=== PATIENT | male | born 1990 | race Caucasian/White ===

== ENCOUNTER 2017-11-30 22:22 | Observation (INO) | payer SELFPAY ==
[2017-11-30] MEDS ORDERED: Zofran 4 MG/2 ML VIAL IV ONE (22:29)
[2017-11-30] MEDS ORDERED: BABY ASPIRIN 81 MG CHEW PO ONE (22:29)
--- NOTE | 2017-11-30 22:29 | ERPHSYRPT ---
- History of Present Illness Time Seen by Provider: 11/30/17 22:25 Historian: patient, family Exam Limitations: no limitations Physician History: The patient is a 27-year-old male with his mother complaining of intermittent central chest pain for 2 weeks. He will have chest pain lasting anywhere from 5 seconds to 30 minutes when the chest pain occurs. It will happen several times a day. He states it feels like a pain followed by a tightness. He currently has no chest pain. He's been nauseated from time to time. He's been short of breath from time to time. He has an appointment tomorrow to be seen by a nurse practitioner. The chest pain is happen several times today. His girlfriend is and now he is worried about his chest pain. His mother tells me that as a child, he had hypertrophic cardiomyopathy. He has not seen a infrastructure developer in several years. He has not seen any doctor in several years. He takes no medicines. His past surgical history is significant for tonsillectomy. Timing/Duration: week(s) (2), intermittent, resolved prior to arrival, sudden, improved Activities at Onset: none Quality: aching, tightness Location: central Chest Pain Radiation: no radiation Severity of Pain-Max: moderate Severity of Pain-Current: none Modifying Factors: Improves With: nothing Associated Symptoms: nausea, shortness of breath, No vomiting, No palpitations, No abdominal pain, No cough, No diaphoresis Prior Chest Pain/Cardiac Workup: no prior chest pain Nitro Today/Relief: no nitro taken today Aspirin Treatment Today: no aspirin today Allergies/Adverse Reactions: No Known Drug Allergies Allergy (Unverified 11/30/17 22:32) - Review of Systems Constitutional: No Fever, No Chills Eyes: No Symptoms Ears, Nose, & Throat: No Symptoms Respiratory: No Cough, No Dyspnea Cardiac: Chest Pain Abdominal/Gastrointestinal: Nausea, No Abdominal Pain, No Vomiting, No Diarrhea Genitourinary Symptoms: No Dysuria Musculoskeletal: No Back Pain, No Neck Pain Skin: No Rash Neurological: No Dizziness, No Focal Weakness, No Sensory Changes Psychological: No Symptoms Endocrine: No Symptoms Hematologic/Lymphatic: No Symptoms Immunological/Allergic: No Symptoms All Other Systems: Reviewed and Negative - Nursing Vital Signs Nursing Vital Signs: Initial Vital Signs Pulse Rate 97 H 11/30/17 22:22 Respiratory Rate 18 11/30/17 22:22 Blood Pressure 133/96 11/30/17 22:22 O2 Sat by Pulse Oximetry 98 11/30/17 22:22 Pain Scale Pain Intensity 2 - Physical Exam General Appearance: no apparent distress, alert, obese Eye Exam: PERRL/EOMI, eyes nml inspection Ears, Nose, Throat Exam: normal ENT inspection, moist mucous membranes Neck Exam: normal inspection, non-tender, supple, full range of motion Respiratory Exam: normal breath sounds, lungs clear, No respiratory distress Cardiovascular Exam: regular rate/rhythm, normal heart sounds Gastrointestinal/Abdomen Exam: soft, No tenderness, No mass Rectal Exam: not done Back Exam: normal inspection, No CVA tenderness, No vertebral tenderness Extremity Exam: normal inspection, normal range of motion Neurologic Exam: alert, oriented x 3, cooperative, normal mood/affect, sensation nml, No motor deficits Skin Exam: normal color, warm, dry SpO2 Interpretation: normal Oxygen Delivery: Room Air - Course EKG Interpreted by Me: RATE, Sinus Rhythm, NORMAL QRS, Other (inverted T waves in V3, V4, V5.) - Radiology Exams Chest X-ray Interpretation: Interpreted by me, Negative, Other (neg 2V chest, elevated left hemidiaphragm with large gastric air bubble. Comp 2V chest .) Ordered Tests: Active Orders 24 hr Category Date Time Status Sign Builder Supervisor STAT Care 11/30/17 22:30 Active Clean Catch Urine Specimen STAT Care 11/30/17 22:29 Active EKG-ER Only STAT Care 11/30/17 22:29 Active IV Insertion STAT Care 11/30/17 22:29 Active Pulse Oximetry (ED) STAT Care 11/30/17 22:29 Active CHEST 2 VIEWS (PA AND LAT) Stat Exams 11/30/17 22:30 Taken CBC W DIFF Stat Lab 11/30/17 22:45 Completed CMP Stat Lab 11/30/17 22:45 Completed NT PRO BNP Stat Lab 11/30/17 22:45 Completed TROPONIN Q3H Lab 11/30/17 22:45 Completed TROPONIN Q3H Lab 12/01/17 01:30 Ordered TROPONIN Q3H Lab 12/01/17 04:30 Ordered TROPONIN Q3H Lab 12/01/17 07:30 Ordered TROPONIN Q3H Lab 12/01/17 10:30 Ordered Urine Triage Profile Stat Lab 11/30/17 22:30 Uncollected Medication Summary Discontinued Medications Generic Name Dose Route Start Last Admin Trade Name Lang PRN Reason Stop Dose Admin Aspirin 324 mg 11/30/17 22:29 11/30/17 22:41 Baby Aspirin 81 Mg Chew PO 11/30/17 22:30 324 mg STAT ONE Administration Aspirin Confirm 11/30/17 22:35 Baby Aspirin 81 Mg Chew Administered 11/30/17 22:36 Dose 324 mg .ROUTE .STK-MED ONE Ondansetron HCl 4 mg 11/30/17 22:29 11/30/17 22:40 Zofran 4 Mg/2 Ml Vial IV 11/30/17 22:30 4 mg STAT ONE Administration Ondansetron HCl Confirm 11/30/17 22:35 Zofran 4 Mg/2 Ml Vial Administered 11/30/17 22:36 Dose 4 mg .ROUTE .STK-MED ONE Lab/Rad Data: Laboratory Result Diagrams 11/30/17 22:45 11/30/17 22:45 Laboratory Results 11/30/17 11/30/17 11/30/17 Range/Units 22:45 22:45 22:45 WBC 10.7 H (4.0-10.5) K/mm3 RBC 5.21 (4.1-5.6) M/mm3 Hgb 16.5 (12.5-18.0) gm/dl Hct 46.1 (42-50) % MCV 88.5 (78-100) fl MCH 31.7 (26-32) pg MCHC 35.8 (32-36) g/dl RDW 13.2 (11.5-14.0) % Plt Count 269 (150-450) K/mm3 MPV 10.0 H (6-9.5) fl Gran % 61.8 (36.0-66.0) % Eos # (Auto) 0.16 (0-0.5) Absolute Lymphs (auto) 2.98 (1.0-4.6) Absolute Monos (auto) 0.90 (0.0-1.3) Lymphocytes % 27.9 (24.0-44.0) % Monocytes % 8.4 (0.0-12.0) % Eosinophils % 1.5 (0.00-5.0) % Basophils % 0.4 (0.0-0.4) % Absolute Granulocytes 6.62 (1.4-6.9) Basophils # 0.04 (0-0.4) Sodium 138 (137-145) mmol/L Potassium 4.0 (3.5-5.1) mmol/L Chloride 102 (98-107) mmol/L Carbon Dioxide 25 (22-30) mmol/L Anion Gap 15.9 H (5-15) MEQ/L BUN 14 (9-20) mg/dL Creatinine 0.85 (0.66-1.25) mg/dL Estimated GFR > 60.0 ML/MIN Glucose 293 H (74-106) mg/dL Calcium 9.1 (8.4-10.2) mg/dL Total Bilirubin 0.40 (0.2-1.3) mg/dL AST 42 (17-59) U/L ALT 69 H (0-50) U/L Alkaline Phosphatase 83 (38-126) U/L Troponin I < 0.012 (0.000-0.034) ng/mL NT-Pro-B Natriuret Pep 17.3 (0-450) pg/mL Serum Total Protein 7.4 (6.3-8.2) g/dL Albumin 4.5 (3.5-5.0) g/dL - Progress Progress: unchanged Air Movement: good Blood Culture(s) Obtained: No Antibiotics given: No Discussed with : Melani Will see patient in: hospital (observation) Counseled pt/family regarding: lab results, diagnosis, rad results - Departure Time of Disposition: 23:39 Departure Disposition: Observation (per Dr Nate Arnold) Clinical Impression: Chest pain Condition: Stable Critical Care Time: No Referrals: S[facility]EN,DR[facility] [Primary Care Provider] -
[2017-11-30] MEDS ORDERED: BABY ASPIRIN 81 MG CHEW ONE (22:35)
[2017-11-30] MEDS ORDERED: Zofran 4 MG/2 ML VIAL ONE (22:35)
[2017-11-30 22:56] LABS: BASOPHIL % 0.4 % (0.0-0.4); Basophil (Absolute #) 0.04 (0-0.4); Eosinophil % 1.5 % (0.00-5.0); Eosinophil (Absolute #) 0.16 (0-0.5); Granulocyte Absolute (ANC) 6.62 (1.4-6.9); Granulocytes % 61.8 % (36.0-66.0); Hematocrit 46.1 % (42-50); Hemoglobin 16.5 gm/dl (12.5-18.0); Lymphocyte (Absolute #) 2.98 (1.0-4.6); Lymphocytes % 27.9 % (24.0-44.0); Mean Cell Volume 88.5 fl (78-100); Mean Corpuscular Hemoglobin 31.7 pg (26-32); Mean Corpuscular Hgb Concent. 35.8 g/dl (32-36); Monocytes % 8.4 % (0.0-12.0); Platelet Count 269 K/mm3 (150-450); Red Blood Count 5.21 M/mm3 (4.1-5.6); Red Cell Distribution Width 13.2 % (11.5-14.0); White Blood Count 10.7 K/mm3 (4.0-10.5)
[2017-11-30 23:18] LABS: ALBUMIN 4.5 g/dL (3.5-5.0); ALKALINE PHOSPHATASE 83 U/L (38-126); ANION GAP 15.9 MEQ/L (5-15); BLOOD UREA NITROGEN 14 mg/dL (9-20); CHLORIDE 102 mmol/L (98-107); Calcium 9.1 mg/dL (8.4-10.2); Carbon Dioxide 25 mmol/L (22-30); Creatinine 1 0.85 mg/dL (0.66-1.25); Glucose 293 mg/dL (74-106); NT PRO BNP 17.3 pg/mL (0-450); SGOT/AST 42 U/L (17-59); SGPT/ALT 69 U/L (0-50); SODIUM 138 mmol/L (137-145); Total Protein 7.4 g/dL (6.3-8.2)
[2017-12-01] MEDS ORDERED: Senokot-S Tablet PO PRN (00:08)
[2017-12-01] MEDS ORDERED: MAALOX ES 30 ML UNIT DOSE PO PRN (00:08)
[2017-12-01] MEDS ORDERED: Zofran 4 MG/2 ML VIAL IV PRN (00:08)
[2017-12-01] MEDS ORDERED: MILK OF MAGNESIA 30 ML PO PRN (00:08)
[2017-12-01] MEDS ORDERED: TYLENOL 325 MG PO PRN (00:08)
[2017-12-01 05:55] LABS: Risk Ratio 3.8
--- NOTE | 2017-12-01 08:30 | PCM.HP ---
History of Present Illness - Chief Complaint Chief Complaint: chest pain Date: 12/01/17 History of Present Illness: is a 27 year old male. who reports a previous history of hypertrophic cardiomyopathy that he was following for yearly echos until he was 19 y/o. 2 weeks ago he began developing a squeezing chest pain in the left side of his chest that would cause him to be short of breath and then have a cramping feeling in the chest after this. He has no dypnea on exertion and no exacerbating or relieving factors. He works as a welder boilermaker and chews tobacco. He has strong family history of diabetes but has never previously known of any sugar problems himself. He has no syncope and no swelling. - Review of Systems Constitutional: No Fever, No Chills Eyes: No Symptoms Ears, Nose, & Throat: No Symptoms Respiratory: Short Of Breath, No Cough Cardiac: Chest Pain, No Edema, No Syncope Abdominal/Gastrointestinal: No Abdominal Pain, No Nausea, No Vomiting, No Diarrhea Genitourinary Symptoms: No Dysuria Musculoskeletal: No Back Pain, No Neck Pain Skin: No Rash Neurological: No Dizziness, No Focal Weakness, No Sensory Changes Psychological: No Symptoms Endocrine: No Symptoms Hematologic/Lymphatic: No Symptoms Immunological/Allergic: No Symptoms Medications & Allergies Home Medications: Home Medication List No Reportable Medications [No Reported Medications] 12/01/17 [History Confirmed 12/01/17] Allergies/Adverse Reactions: Allergies Allergy/AdvReac Type Severity Reaction Status Date / Time No Known Drug Allergies Allergy Unverified 11/30/17 22:32 - Past Medical History Past Medical History: Yes Neurological History: No Pertinent History ENT History: No Pertinent History Cardiac History: Other Respiratory History: No Pertinent History Endocrine Medical History: No Pertinent History Musculoskelatal History: No Pertinent History GI Medical History: No Pertinent History History: No Pertinent History Pyscho-Social History: No Pertinent History Male Reproductive Disorders: No Pertinent History Comment: HYPERTROPHIC CARDIOMYOPATHY. - Past Surgical History Past Surgical History: Yes Neuro Surgical History: No Pertinent History Cardiac History: No Pertinent History Respiratory Surgery: No Pertinent History GI Surgical History: No Pertinent History Genitourinary Surgical Hx: No Pertinent History Musculskeletal Surgical Hx: No Pertinent History Male Surgical History: No Pertinent History - Social History Smoking Status: Never smoker Exposure to second hand smoke: No Alcohol: None Drug Use: none - Physical Exam Vital Signs: Vital Signs - 24 hr Temp Pulse Pulse Resp BP Pulse Ox 12/01/17 07:47 94 L 12/01/17 07:18 97.7 F 57 L 20 131/60 94 L 12/01/17 04:00 98.2 F 65 18 128/60 97 12/01/17 00:22 97.8 F 69 24 155/75 97 11/30/17 23:12 95 H 18 129/93 98 11/30/17 22:29 98 11/30/17 22:22 91 H 97 H 18 133/96 98 General Appearance: no apparent distress, alert, obese Neurologic Exam: alert, oriented x 3, cooperative, normal mood/affect, nml cerebellar function, nml station & gait, sensation nml, No motor deficits Eye Exam: PERRL/EOMI, eyes nml inspection Ears, Nose, Throat Exam: normal ENT inspection, TMs normal, pharynx normal, moist mucous membranes Neck Exam: normal inspection, non-tender, supple, full range of motion Respiratory Exam: normal breath sounds, lungs clear, No respiratory distress Cardiovascular Exam: regular rate/rhythm, normal heart sounds, normal peripheral pulses Gastrointestinal/Abdomen Exam: soft, normal bowel sounds, No tenderness, No mass Back Exam: normal inspection, normal range of motion, No CVA tenderness, No vertebral tenderness Extremity Exam: normal inspection, normal range of motion, pelvis stable Skin Exam: normal color, warm, dry, No rash Lymphatic Exam: No adenopathy Results - Labs Lab/Micro Results: Accuchecks Date 12/01/17 Time 07:30 Accucheck Value: 130 Lab Results-Last 24 Hours 11/30/17 11/30/17 11/30/17 Range/Units 22:45 22:45 22:45 WBC 10.7 H (4.0-10.5) K/mm3 RBC 5.21 (4.1-5.6) M/mm3 Hgb 16.5 (12.5-18.0) gm/dl Hct 46.1 (42-50) % MCV 88.5 (78-100) fl MCH 31.7 (26-32) pg MCHC 35.8 (32-36) g/dl RDW 13.2 (11.5-14.0) % Plt Count 269 (150-450) K/mm3 MPV 10.0 H (6-9.5) fl Gran % 61.8 (36.0-66.0) % Eos # (Auto) 0.16 (0-0.5) Absolute Lymphs (auto) 2.98 (1.0-4.6) Absolute Monos (auto) 0.90 (0.0-1.3) Lymphocytes % 27.9 (24.0-44.0) % Monocytes % 8.4 (0.0-12.0) % Eosinophils % 1.5 (0.00-5.0) % Basophils % 0.4 (0.0-0.4) % Absolute Granulocytes 6.62 (1.4-6.9) Basophils # 0.04 (0-0.4) Sodium 138 (137-145) mmol/L Potassium 4.0 (3.5-5.1) mmol/L Chloride 102 (98-107) mmol/L Carbon Dioxide 25 (22-30) mmol/L Anion Gap 15.9 H (5-15) MEQ/L BUN 14 (9-20) mg/dL Creatinine 0.85 (0.66-1.25) mg/dL Estimated GFR > 60.0 ML/MIN Glucose 293 H (74-106) mg/dL Calcium 9.1 (8.4-10.2) mg/dL Total Bilirubin 0.40 (0.2-1.3) mg/dL AST 42 (17-59) U/L ALT 69 H (0-50) U/L Alkaline Phosphatase 83 (38-126) U/L Troponin I < 0.012 (0.000-0.034) ng/mL NT-Pro-B Natriuret Pep 17.3 (0-450) pg/mL Serum Total Protein 7.4 (6.3-8.2) g/dL Albumin 4.5 (3.5-5.0) g/dL Triglycerides (30-150) mg/dL Cholesterol (50-200) mg/dL LDL Cholesterol (30-100) mg/dL HDL Cholesterol (40-60) mg/dL Heart Disease Risk Ratio 12/01/17 12/01/17 12/01/17 Range/Units 01:40 05:02 05:02 WBC (4.0-10.5) K/mm3 RBC (4.1-5.6) M/mm3 Hgb (12.5-18.0) gm/dl Hct (42-50) % MCV (78-100) fl MCH (26-32) pg MCHC (32-36) g/dl RDW (11.5-14.0) % Plt Count (150-450) K/mm3 MPV (6-9.5) fl Gran % (36.0-66.0) % Eos # (Auto) (0-0.5) Absolute Lymphs (auto) (1.0-4.6) Absolute Monos (auto) (0.0-1.3) Lymphocytes % (24.0-44.0) % Monocytes % (0.0-12.0) % Eosinophils % (0.00-5.0) % Basophils % (0.0-0.4) % Absolute Granulocytes (1.4-6.9) Basophils # (0-0.4) Sodium (137-145) mmol/L Potassium (3.5-5.1) mmol/L Chloride (98-107) mmol/L Carbon Dioxide (22-30) mmol/L Anion Gap (5-15) MEQ/L BUN (9-20) mg/dL Creatinine (0.66-1.25) mg/dL Estimated GFR ML/MIN Glucose (74-106) mg/dL Calcium (8.4-10.2) mg/dL Total Bilirubin (0.2-1.3) mg/dL AST (17-59) U/L ALT (0-50) U/L Alkaline Phosphatase (38-126) U/L Troponin I 0.014 < 0.012 (0.000-0.034) ng/mL NT-Pro-B Natriuret Pep (0-450) pg/mL Serum Total Protein (6.3-8.2) g/dL Albumin (3.5-5.0) g/dL Triglycerides 98 (30-150) mg/dL Cholesterol 160 (50-200) mg/dL LDL Cholesterol 112 H (30-100) mg/dL HDL Cholesterol 42 (40-60) mg/dL Heart Disease Risk Ratio 3.8 12/01/17 Range/Units 07:30 WBC (4.0-10.5) K/mm3 RBC (4.1-5.6) M/mm3 Hgb (12.5-18.0) gm/dl Hct (42-50) % MCV (78-100) fl MCH (26-32) pg MCHC (32-36) g/dl RDW (11.5-14.0) % Plt Count (150-450) K/mm3 MPV (6-9.5) fl Gran % (36.0-66.0) % Eos # (Auto) (0-0.5) Absolute Lymphs (auto) (1.0-4.6) Absolute Monos (auto) (0.0-1.3) Lymphocytes % (24.0-44.0) % Monocytes % (0.0-12.0) % Eosinophils % (0.00-5.0) % Basophils % (0.0-0.4) % Absolute Granulocytes (1.4-6.9) Basophils # (0-0.4) Sodium (137-145) mmol/L Potassium (3.5-5.1) mmol/L Chloride (98-107) mmol/L Carbon Dioxide (22-30) mmol/L Anion Gap (5-15) MEQ/L BUN (9-20) mg/dL Creatinine (0.66-1.25) mg/dL Estimated GFR ML/MIN Glucose (74-106) mg/dL Calcium (8.4-10.2) mg/dL Total Bilirubin (0.2-1.3) mg/dL AST (17-59) U/L ALT (0-50) U/L Alkaline Phosphatase (38-126) U/L Troponin I < 0.012 (0.000-0.034) ng/mL NT-Pro-B Natriuret Pep (0-450) pg/mL Serum Total Protein (6.3-8.2) g/dL Albumin (3.5-5.0) g/dL Triglycerides (30-150) mg/dL Cholesterol (50-200) mg/dL LDL Cholesterol (30-100) mg/dL HDL Cholesterol (40-60) mg/dL Heart Disease Risk Ratio Accuchecks Date 12/01/17 Time 07:30 Accucheck Value: 130 - Radiology Impressions Radiology Exams & Impressions: Radiology Procedures Category Date Time Status CHEST 2 VIEWS (PA AND LAT) Stat Exams 11/30/17 22:30 Taken ECHO W/2D AND DOPPLER [US] Routine Exams 12/01/17 10:00 Ordered - Other Procedures and Tests Respiratory Therapy 12/02/17 05:00 EKG ROUTINE 12/03/17 05:00 EKG ROUTINE Assessment/Plan (1) Chest pain Current Visit: Yes Status: Acute Assessment & Plan: with his history of hypertrophic cardiomyopathy as a child will get echo now and tele cardiology consult. he is currently asymptomatic. Code(s): R07.9 - CHEST PAIN, UNSPECIFIED (2) Hyperglycemia Current Visit: Yes Status: Acute Assessment & Plan: suspect type 2 diabetes checking A1c discussed diet and exercise and decreased carbohydrate diet Code(s): R73.9 - HYPERGLYCEMIA, UNSPECIFIED
--- NOTE | 2017-12-01 08:38 | XRAY ---
Exam: Two-view chest from 11/30/2017. Comparison: Two-view chest from 07/03/2009. Indication: Chest pain for the past 2 weeks per patient. Findings: Upright frontal and lateral chest films are submitted for evaluation. There is large amount of bowel gas within the visualized stomach underneath the left hemidiaphragm which I believe contributes to mild elevation of the left hemidiaphragm. Correlate clinically regarding the need for further evaluation with a 2 view abdomen series. There is mild accentuation of the bronchovascular lung markings lateral to left hilum which I believe is due to the elevated left hemidiaphragm (i.e. crowding). The transverse heart size is normal. No air space infiltrates, pneumothorax, or pleural fluid is seen. There is a mild lower dorsal kyphosis. I note mild to moderate anterior lateral vertebral endplate spurring within the lower thoracic spine in this 27-year-old patient. There is also slight chronic loss of the anterior vertebral body height of a couple adjacent lower thoracic vertebra (about T8 and T9) as well as partially seen mild chronic compressions of the 2 vertebra beneath this (about T10 and T11). Does this patient have a history of Scheuermann's disease as an adolescent? Impression: 1. No acute cardiopulmonary disease is seen. 2. There is mild elevation of the left hemidiaphragm with a large amount of gas seen within a partially visualized stomach lumen in the left upper quadrant. Correlate clinically regarding the need for a two-view abdomen series to further assess the bowel gas pattern. There is no free intraperitoneal air underneath the hemidiaphragms. 3. Lower thoracic spine findings which may be the result of Scheuermann's disease as an adolescent.
[2017-12-01 09:30] LABS: Amphetamine,Urine NEGATIVE (NEGATIVE); Barbiturate,Urine NEGATIVE (NEGATIVE); Benzodiazepine,Urine NEGATIVE (NEGATIVE); Cocaine,Urine NEGATIVE (NEGATIVE); Methadone,Urine NEGATIVE (NEGATIVE); Opiate,Urine NEGATIVE (NEGATIVE); PCP,Urine NEGATIVE (NEGATIVE); THC,Urine NEGATIVE (NEGATIVE)
[2017-12-01] MEDS ORDERED: Ecotrin 325 MG PO SCH (10:00)
[2017-12-01 13:44] VITALS: O2SAT 99
[2017-12-01] MEDS ORDERED: Nitrostat 0.4 MG Tablet SL PRN (16:07)
[2017-12-01 16:34] VITALS: BP 141/79; PULSE 54
[2017-12-02] MEDS ORDERED: ECOTRIN 81 MG PO SCH (10:00)
--- NOTE | 2017-12-04 09:00 | ECHO ---
DATE OF PROCEDURE: 12/01/2017 CLINICAL INFORMATION: History of hypertrophic cardiomyopathy. The test is done to assess left ventricular function. The M-mode 2D, and Doppler echocardiogram including color flow Doppler shows normal contractibility of the left ventricle with an ejection fraction calculated to be 76%. The left ventricle is normal in size at 4.4 cm. The septal wall thickness is 1.1 cm. The left ventricular posterior wall thickness is 1.5 cm. There is no apical thrombus present. The right ventricle is grossly normal. The left atrium is dilated at 4.6 cm. The interatrial septum is intact. The right atrium appears mildly dilated. The aortic valve opens well. There is mitral valve leaflet thickening. There is mild mitral regurgitation present. There is mild tricuspid regurgitation. The right ventricular systolic pressure is normal at 26 mm of Mercury. The pulmonic valve is not well visualized. The aortic root is normal at 3.2 cm. There is no pericardial effusion present. IMPRESSION: 1) MILD TO MODERATE ASYMMETRIC LEFT VENTRICULAR HYPERTROPHY. 2) NORMAL CONTRACTILITY OF THE LEFT VENTRICLE. 3) MILD LEFT ATRIAL DILATATION. 4) MILD MITRAL REGURGITATION. 5) MILD TRICUSPID REGURGITATION. 6) NORMAL RIGHT VENTRICULAR SYSTOLIC PRESSURE.
== END 2017-12-01 16:55 | disposition home or self-care (01) ==
LOC: ED 22:22 → MED SURG 12-01 00:01
PROVIDERS: ADMIT Family Medicine; ATTEND Family Medicine
DX: R07.89 Other chest pain (principal); E11.65 Type 2 diabetes mellitus with hyperglycemia; Z79.4 Long term (current) use of insulin; I42.2 Other hypertrophic cardiomyopathy; I20.8 Other forms of angina pectoris; E66.9 Obesity, unspecified
CPT/HCPCS: 36000; 36415; 71046; 80053; 80061; 80307; 82962; 83036; 83721; 83880; 84484; 85025; 93005; 93041; 93268; 93306; 96374; 99285; J2405; Q3014; A9270-GY; G0378

== ENCOUNTER 2018-02-28 19:52 | Emergency (ER) | payer BC, SELFPAY ==
[2018-02-28] MEDS ORDERED: TORAdol 30 mg Injection IM ONE (20:31)
[2018-02-28] MEDS ORDERED: TORAdol 30 mg Injection ONE (20:34)
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
[2018-02-28] MEDS ORDERED: NORCO 5/325 MG PO ONE (21:27)
[2018-02-28] MEDS ORDERED: NORCO 5/325 MG ONE (21:35)
[2018-02-28 21:42] VITALS: BP 142/84; PULSE 92; O2SAT 97
--- NOTE | 2018-03-01 08:20 | XRAY ---
Indication: Low back pain 5 days. Comparison: None 5 views of the lumbar spine demonstrates 5 lumbar vertebral segments in normal alignment with remote L1 superior endplate fracture with 50% height loss, mild thoracolumbar degenerative endplate spurring, and tiny L2/L3 Schmorl nodes. No acute fracture, subluxation, or suspicious bone lesions. Visualized soft tissues unremarkable. Impression: Nonacute lumbar spine with chronic features.
== END 2018-02-28 22:05 | disposition home or self-care (01) ==
LOC: ED 19:52
DX: M54.5 Low back pain (principal)
CPT/HCPCS: 72100; 96372; 99284; J1885; A9270-GY